=== PATIENT | female | born 1960 | race Caucasian/White ===

== ENCOUNTER 2023-09-05 14:10 | Inpatient (IN) | payer OTHER ==
[~2023-09-05] VITALS: Ht 170.2 cm; Wt 63.5 kg
[2023-09-05 15:16] LABS: DIFFERENTIAL COMMENT 1; HEMATOCRIT. 54.4 % (36.0-48.0); HEMOGLOBIN. 17.8 g/dL (12.0-16.0); MEAN CORPUSCULAR HGB CONC 32.8 g/dL (31.0-37.0); MEAN CORPUSCULAR VOLUME 94.7 fL (81.0-99.0); MEAN PLATELET VOLUME 8.6 fl (7.4-10.4); PLATELET 252 x1000/uL (130-400); RED BLOOD CELL COUNT 5.75 mill/uL (4.2-5.4); RED CELL DISTRIBUTION WIDTH 14.3 % (11.6-14.6); WHITE BLOOD COUNT 26.2 x1000/uL (4.5-11.0)
[2023-09-05 15:32] LABS: ALANINE AMINOTRANSFERASE 32 IU/L (10-49); ALBUMIN 4.4 g/dL (3.2-4.8); ASPARTATE AMINOTRANSFERASE 49 IU/L (<34); BILIRUBIN TOTAL 1.3 mg/dL (0.1-1.0); CALCIUM 9.1 mg/dL (8.7-10.4); CARBON DIOXIDE 22 mEq/L (21-32); CHLORIDE 103 mEq/L (98-107); CREATININE 0.7 mg/dL (0.6-1.0); GLUCOSE 165 mg/dL (70-105); POTASSIUM 3.8 mEq/L (3.5-5.1); PROTEIN TOTAL 6.9 g/dL (6.0-8.3); SODIUM 135 mEq/L (136-145); UREA NITROGEN BLOOD 10 mg/dL (9-23)
[2023-09-05 15:38] LABS: ETHANOL BLOOD < 10 mg/dL (<10); TROPONIN I HIGH SENSITIVITY 67 ng/L (3.0-34)
[2023-09-05] MEDS: SODIUM CHLORIDE 0.9% 1,000 ML IV ONE ×2 (15:47→17:31)
[2023-09-05] MEDS: ONDANSETRON HCL 4MG/2ML INJ IV STA (15:47)
[2023-09-05 15:50] LABS: PLATELET ESTIMATE NORMAL
[2023-09-05 17:27] LABS: TROPONIN I HIGH SENSITIVITY 75 ng/L (3.0-34)
[2023-09-05] MEDS: CEFTRIAXONE 1GM/50ML 50 ML IV ONE (17:31)
[2023-09-05 17:43] LABS: CLARITY URINE CLOUDY (CLEAR); COLOR URINE DARK YELLOW (YELLOW); GLUCOSE URINE NEGATIVE (NEGATIVE); KETONES URINE 2+ (NEGATIVE); LEUKOCYTE ESTERASE URINE NEGATIVE (NEGATIVE); NITRITE URINE POSITIVE (NEGATIVE); OCCULT BLOOD URINE 2+ (NEGATIVE); PH URINE 5.5 (4.5-8.0); PROTEIN URINE 3+ (NEGATIVE); SPECIFIC GRAVITY URINE 1.023 (1.005-1.030)
[2023-09-05 17:57] LABS: SQUAMOUS EPITHELIAL CELL URINE 2+ /lpf (RARE/1+)
[2023-09-05 17:58] LABS: MUCUS URINE 2+ /lpf (< = 2+)
[2023-09-05 17:59] LABS: BACTERIA URINE 4+; RBC URINE 0-2 /hpf (0-2)
[2023-09-05] MEDS ORDERED: ONDANSETRON HCL 4MG/2ML INJ IV PRN (18:00)
[2023-09-05] MEDS ORDERED: GUAIFENESIN 200MG/10ML SUGAR FREE UDC PO PRN (18:00)
[2023-09-05] MEDS ORDERED: DEXTROSE 50% WATER 50ML SYRINGE IV PRN (18:00)
[2023-09-05] MEDS ORDERED: DOCUSATE SODIUM 100MG CAPSULE PO PRN (18:00)
[2023-09-05] MEDS ORDERED: MAGNESIUM/ALUMINUM HYDROXIDE/SIMETHICONE 30ML UDC PO PRN (18:00)
[2023-09-05] MEDS ORDERED: CLONIDINE 0.1MG TABLET PO PRN (18:00)
[2023-09-05] MEDS ORDERED: IPRATROPIUM/ALBUTEROL 0.5-3(2.5)MG/3ML NEB HHN PRN (18:00)
[2023-09-05] MEDS: PIPERACILLIN/TAZO 3.375G/50ML 50 ML IV NR (18:15)
[2023-09-05] MEDS: VANCOMYCIN 1G PREMIX 200 ML IV NR (18:45)
[2023-09-05] MEDS: BLOOD SUGAR DIAGNOSTIC STRIP TEST SCH (19:08)
[2023-09-05] MEDS: MECLIZINE 12.5MG TABLET PO SCH (19:18)
[2023-09-05] MEDS: SODIUM CHLORIDE 0.9% 1,000 ML IV SCH (19:18)
[2023-09-05] MEDS: INSULIN LISPRO 100 UNITS/ML SUBCUT SCH (19:19)
[2023-09-05 19:30] LABS: CREATINE KINASE 100 IU/L (34-145); CREATINE KINASE MB FRACTION 3.7 ng/mL (0.5-3.6); PHOSPHORUS 2.8 mg/dL (2.5-4.9)
[2023-09-05 19:37] LABS: TROPONIN I HIGH SENSITIVITY 102 ng/L (3.0-34)
[2023-09-05 19:50] LABS: BETA HYDROXYBUTYRATE 0.1 mMol/L (0.0-0.3)
[2023-09-05] MEDS: FAMOTIDINE 20MG TABLET PO SCH (21:53)
[2023-09-05 23:30] VITALS: BP 101/42; PULSE 62; RESP 20; TEMP 98.2
[2023-09-06 02:13] LABS: CREATINE KINASE MB FRACTION 3.4 ng/mL (0.5-3.6)
[2023-09-06] MEDS ORDERED: MECLIZINE 25MG TABLET PO SCH ×2 (02:45→06:00)
[2023-09-06] MEDS: MECLIZINE 25MG TABLET PO SCH (05:25)
[2023-09-06] MEDS: PIPERACILLIN/TAZO 3.375G/50ML 50 ML IV SCH (05:25)
[2023-09-06 05:59] LABS: BASOPHILS % 0.5 % (0.0-2.0); EOSINOPHILS % 6.6 % (0.0-5.0); HEMATOCRIT. 43.8 % (36.0-48.0); HEMOGLOBIN. 14.8 g/dL (12.0-16.0); LYMPHOCYTES % 13.3 % (20.0-50.0); MEAN CORPUSCULAR HEMOGLOBIN 31.6 pg (28.0-32.0); MEAN CORPUSCULAR HGB CONC 33.8 g/dL (31.0-37.0); MEAN CORPUSCULAR VOLUME 93.3 fL (81.0-99.0); MEAN PLATELET VOLUME 8.8 fl (7.4-10.4); MONOCYTES % 4.2 % (2.0-8.0); NEUTROPHILS % 75.4 % (40.0-76.0); PLATELET 219 x1000/uL (130-400); RED BLOOD CELL COUNT 4.69 mill/uL (4.2-5.4); RED CELL DISTRIBUTION WIDTH 14.2 % (11.6-14.6); WHITE BLOOD COUNT 14.3 x1000/uL (4.5-11.0)
[2023-09-06 06:20] LABS: ALANINE AMINOTRANSFERASE 18 IU/L (10-49); ALBUMIN 3.6 g/dL (3.2-4.8); ASPARTATE AMINOTRANSFERASE 24 IU/L (<34); CALCIUM 8.7 mg/dL (8.7-10.4); CARBON DIOXIDE 24 mEq/L (21-32); CHLORIDE 111 mEq/L (98-107); CHOLESTEROL 121 mg/dL (<200); CREATINE KINASE 89 IU/L (34-145); CREATINE KINASE MB FRACTION 3.5 ng/mL (0.5-3.6); CREATININE 0.7 mg/dL (0.6-1.0); GLUCOSE 82 mg/dL (70-105); HDL CHOLESTEROL 40 mg/dL (>65); LDL CHOLESTEROL 73 mg/dL (5-100); POTASSIUM 3.4 mEq/L (3.5-5.1); PROTEIN TOTAL 5.8 g/dL (6.0-8.3); SODIUM 141 mEq/L (136-145); THYROID STIMULATING HORMONE 0.86 uIU/mL (0.55-4.78); TRIGLYCERIDE 57 mg/dL (0-150); UREA NITROGEN BLOOD 13 mg/dL (9-23)
[2023-09-06] MEDS ORDERED: DABI150C PO (07:10)
[2023-09-06] MEDS ORDERED: LISI40TA13 PO (07:10)
[2023-09-06] MEDS ORDERED: FAMO20TA8 PO (07:10)
[2023-09-06] MEDS ORDERED: ALBUTEROL (07:10)
[2023-09-06] MEDS ORDERED: CLOP75TA33 PO (07:11)
[2023-09-06] MEDS ORDERED: ROSUVASTATIN (07:11)
[2023-09-06 08:00] VITALS: BP 118/55; PULSE 59; RESP 18; TEMP 98
[2023-09-06 08:04] LABS: TROPONIN I HIGH SENSITIVITY 96 ng/L (3.0-34)
[2023-09-06] MEDS ORDERED: VANCOMYCIN 750MG PREMIX 150 ML IV SCH (09:00)
[2023-09-06] MEDS: CLOPIDOGREL 75MG TABLET PO SCH (09:13)
[2023-09-06] MEDS: ASPIRIN 81MG TABLET PO SCH (09:13)
[2023-09-06] MEDS: ENOXAPARIN 40MG/0.4ML SYR SUBCUT SCH (09:14)
[2023-09-06] MEDS ORDERED: MECLIZINE 25MG TABLET PO PRN (11:15)
[2023-09-06 12:00] VITALS: BP 121/56; PULSE 61; RESP 18; TEMP 97.8
[2023-09-06] MEDS: POTASSIUM CHLORIDE 20MEQ TABLET SR PO NR (12:27)
[2023-09-06] MEDS: VANCOMYCIN 750MG PREMIX 150 ML IV SCH (12:36)
[2023-09-06 15:00] LABS: *AMPHETAMINES SCREEN URINE NEGATIVE (NEGATIVE); *BARBITURATES SCREEN URINE NEGATIVE (NEGATIVE); *BENZODIAZEPINES SCREEN URINE NEGATIVE (NEGATIVE); *COCAINE SCREEN URINE NEGATIVE (NEGATIVE); CANNABINOID URINE SCREEN NEGATIVE (NEGATIVE); ECSTASY MDMA SCREEN URINE NEGATIVE (NEGATIVE); METHADONE URINE SCREEN Neg (NEGATIVE); OPIATES URINE SCREEN NEGATIVE (NEGATIVE); PHENCYCLIDINE URINE SCREEN NEGATIVE (NEGATIVE)
[2023-09-06 16:00] VITALS: BP 128/58; PULSE 63; RESP 18; TEMP 97.3
[2023-09-06 18:36] VITALS: BP 128/58; PULSE 63; TEMP 97.7; O2SAT 100
[2023-09-06 18:46] VITALS: BP 128/58; PULSE 63; TEMP 97.7; O2SAT 100
== END 2023-09-06 20:25 | disposition short-term general hospital (02) | DRG 871 ==
LOC: ER 14:10 → 7WST 16:52 → EDBEDREQTM 16:55 → EDBEDREQ 16:55
PROVIDERS: ADMIT Internal Medicine; ATTEND Internal Medicine
PROC: 4B02XSZ Measurement of Cardiac Pacemaker, External Approach (ICD-10-PCS; principal; 2023-09-06)
DX: A41.9 Sepsis, unspecified organism (principal); I21.4 Non-ST elevation (NSTEMI) myocardial infarction; N39.0 Urinary tract infection, site not specified; I44.2 Atrioventricular block, complete; I67.82 Cerebral ischemia; I48.20 Chronic atrial fibrillation, unspecified; E86.0 Dehydration; I11.9 Hypertensive heart disease without heart failure; R73.9 Hyperglycemia, unspecified; I95.1 Orthostatic hypotension; Z95.0 Presence of cardiac pacemaker; Z88.6 Allergy status to analgesic agent; Z79.02 Long term (current) use of antithrombotics/antiplatelets; Z79.01 Long term (current) use of anticoagulants
CPT/HCPCS: 36415; 71045; 80053; 80061; 80305; 80320; 81003; 82010; 82550; 82553; 82962; 83036; 83605; 83735; 83880; 84100; 84145; 84439; 84443; 84484; 85025; 85379; 87186; 93005; 93306; 97161; 97165; 99285; J0696; J1650; J1815; J2405; J2543; J3370; J7030; J8597; G0480